=== PATIENT | female | born 1980 | race Two or more races ===

== ENCOUNTER 2024-04-25 12:43 | Emergency (ER) | payer OTHER ==
[~2024-04-25] VITALS: Ht 167.6 cm; Wt 111.1 kg
[2024-04-25] MEDS ORDERED: METFORMIN HCL500 M3 (12:56)
[2024-04-25] MEDS ORDERED: KETOROLAC TROMETHAMINE 60 MG VIAL IM ONE (14:00)
[2024-04-25] MEDS ORDERED: KETOROLAC TROMETHAMINE 30 MG VIAL ONE (14:12)
[2024-04-25] MEDS ORDERED: CEFTRIAXONE SODIUM 1,000 MG VIAL IM ONE (14:15)
[2024-04-25] MEDS ORDERED: LIDOCAINE HCL 1% 10ML VIAL ONE (14:17)
== END 2024-04-25 15:57 ==
LOC: ER 12:44
DX: K08.89 Other specified disorders of teeth and supporting structures (principal); I10 Essential (primary) hypertension; E11.9 Type 2 diabetes mellitus without complications; Z79.84 Long term (current) use of oral hypoglycemic drugs